=== PATIENT | female | born 1985 | race African-American/Black ===

== ENCOUNTER 2018-08-19 13:02 | Emergency (ER) | payer OTHER | END 2018-08-19 16:13 | disposition home or self-care (01) | LOC: JER 13:02 ==

== ENCOUNTER 2018-09-02 22:05 | Inpatient (IN) | payer OTHER ==
[2018-09-02 22:08] VITALS: BMI 33.3
--- NOTE | 2018-09-02 22:47 | PDOC ---
History of Present Illness - General Chief Complaint: Pain Stated Complaint: ABD PAIN/ 20 WEEKS PREG. Time Seen by Provider: 09/02/18 22:47 History Source: Patient Exam Limitations: No Limitations - History of Present Illness Initial Comments: 09/02/18 23:06 32 year old female with PMH uterine fibroid, 20 weeks A0 presented to ED for RLQ pain since yesterday evening. Pt admitted to nausea, denied vomiting/diarrhea/constipation/dysuria/vaginal bleeding/vaginal discharge. Pt reported her pain is constant, cramp-like, aggravated by breathing and moving, alleviated by rest. Pt reported taking Tylenol every 5 hours today Allergies: NKDA Past History - Past Medical History Allergies/Adverse Reactions: Allergies Allergy/AdvReac Type Severity Reaction Status Date / Time No Known Allergies Allergy Verified 08/19/18 13:15 Home Medications: Ambulatory Orders NK [No Known Home Medication] 08/19/18 COPD: No - Reproductive History (#): 1 Para: 0 - Suicide/Smoking/Psychosocial Hx Smoking History: Never smoked Review of Systems - Review of Systems Able to Perform ROS?: Yes Comments:: 09/02/18 23:05 General: denied fever, chills, generalized weakness. HEENT: denied sore throat, rhinorrhea, ear pain. Heart: denied chest pain, palpitations, syncope, diaphoresis. Respiratory: denied shortness of breath, cough, sputum production, hemoptysis. Abdomen: admitted to abdominal pain, nausea. denied vomiting, diarrhea, constipation, blood in stool. : denied dysuria, increased urinary frequency, hematuria, urinary incontinence , flank pain. Back: denied back pain. Musculoskeletal: denied joint pain, muscle pain, joint swelling. Neurological: denied headache, dizziness, numbness, tingling, weakness. Skin: denied rash, laceration, abrasion. *Physical Exam - Vital Signs Last Vital Signs Temp Pulse Resp BP Pulse Ox 98.5 F 75 19 118/68 100 09/02/18 22:06 09/02/18 22:06 09/02/18 22:06 09/02/18 22:09/02/18 22:06 - Physical Exam Comments: 09/02/18 23:05 Constitutional: Well-nourished, Well-developed, appearing stated age. HEENT: head is normocephalic, atraumatic. EOMI. PERRLA. Neck: supple. Full ROM. Heart: regular rhythm. no murmurs, rubs or gallops. Lungs: clear to auscultation bilaterally. no crackles, rhonchi or wheezing. no stridor. Abdomen: soft, gravid. diffuse tenderness to palpation, worse in RLQ. positive obturator. positive psoas. normal bowel sounds. no rebound, guarding, masses. Extremities: peripheral pulses intact. no lower extremity edema. Neurological: CN 2-12 grossly intact. moves all four extremities. Psych: awake, alert, oriented x3. follows commands. answers questions appropriately. Pelvic: normal external genitalia. copious white thin discharge. no CMT. no adnexal tenderness. ED Treatment Course - LABORATORY CBC & Chemistry Diagram: 09/02/18 22:45 09/02/18 22:45 Medical Decision Making - Medical Decision Making 09/02/18 23:08 32 year old female with no PMH 20 weeks A0 presented to ED for RLQ pain associated with nausea since yesterday evening. Initial Vital Signs Temp Pulse Resp BP Pulse Ox 98.5 F 75 19 118/68 100 09/02/18 22:06 09/02/18 22:06 09/02/18 22:06 09/02/18 22:06 09/02/18 22:06 Afebrile. No tachycardia. No tachypnea. No hypotension. No hypoxia on room air. Labs ordered: CBC, CMP, beta quant, UA/UC, gonorrhea/chlamydia amplification Medications ordered: tylenol IV, azithromycine 1000 mg PO once, ceftriaxone 250 mg IM once Imaging ordered: abdominal US, US US report 08/19/18: EXAM#: TYPE/EXAM: RESULT: [id number] US/ LIMITED US HISTORY PROVIDED: evaluation. Real time examination of the pelvis demonstrates the following: There is a single live intrauterine with measurements corresponding to a gestational age of 17 weeks 5 days. A heart rate of 154 BPM was calculated. There is anterior uterine mass consistent with a leiomyoma. This fibroid measures 6.6 x 5.5 x 5.5 cm. The placenta is fundal in location. An adequate amount of amniotic fluid is identified. The fetus is in a vertex presentation at the present time. A cervical length of 4.9 cm was also measured. IMPRESSION: Single live intrauterine gestation of 17 weeks 5 days gestational age. Reported By: Ant Jain MD 08/19/18 [id number] Examination concerning for possible STI. Will treat. Call back placed for patient to be called with GC/Chlamydia results. 09/02/18 23:23 CBC WBC 12.6 K/mm3 (4.0-10.0) H 09/02/18 22:45 RBC 4.44 M/mm3 (3.60-5.2) 09/02/18 22:45 Hgb 12.2 GM/dL (10.7-15.3) 09/02/18 22:45 Hct 37.1 % (32.4-45.2) 09/02/18 22:45 MCV 83.6 fl (80-96) 09/02/18 22:45 MCH 27.5 pg (25.7-33.7) 09/02/18 22:45 MCHC 32.9 g/dl (32.0-36.0) 09/02/18 22:45 RDW 15.6 % (11.6-15.6) 09/02/18 22:45 Plt Count 231 K/MM3 (134-434) 09/02/18 22:45 MPV 9.0 fl (7.5-11.1) 09/02/18 22:45 Absolute Neuts (auto) 10.0 K/mm3 (1.5-8.0) H 09/02/18 22:45 Neutrophils % 79.4 % (42.8-82.8) 09/02/18 22:45 Lymphocytes % 12.3 % (8-40) D 09/02/18 22:45 Monocytes % 7.5 % (3.8-10.2) 09/02/18 22:45 Eosinophils % 0.4 % (0-4.5) 09/02/18 22:45 Basophils % 0.4 % (0-2.0) 09/02/18 22:45 Nucleated RBC % 0 % (0-0) 09/02/18 22:45 Leukocytosis. No anemia. 09/02/18 23:49 Urine Test Results Urine Color Yellow 09/02/18 23:13 Urine Appearance Clear 09/02/18 23:13 Urine pH 7.5 (5.0-8.0) 09/02/18 23:13 Ur Specific [place] 1.013 (1.010-1.035) 09/02/18 23:13 Urine Protein Negative (NEGATIVE) 09/02/18 23:13 Urine Glucose (UA) Negative (NEGATIVE) 09/02/18 23:13 Urine Ketones Negative (NEGATIVE) 09/02/18 23:13 Urine Blood Negative (NEGATIVE) 09/02/18 23:13 Urine Nitrite Negative (NEGATIVE) 09/02/18 23:13 Urine Bilirubin Negative (NEGATIVE) 09/02/18 23:13 Ur Leukocyte Esterase Negative (NEGATIVE) 09/02/18 23:13 Negative for UTI. 09/03/18 00:04 CMP Sodium 140 mmol/L (136-145) 09/02/18 22:45 Potassium 4.7 mmol/L (3.5-5.1) 09/02/18 22:45 Chloride 106 mmol/L (98-107) 09/02/18 22:45 Carbon Dioxide 26 mmol/L (21-32) 09/02/18 22:45 Anion Gap 7 MMOL/L (8-16) L 09/02/18 22:45 BUN 3.0 mg/dL (7-18) L 09/02/18 22:45 Creatinine 0.6 mg/dL (0.55-1.3) 09/02/18 22:45 Est GFR (CKD-EPI)AfAm 138.80 09/02/18 22:45 Est GFR (CKD-EPI)NonAf 119.76 09/02/18 22:45 Random Glucose 83 mg/dL (74-106) 09/02/18 22:45 Calcium 9.0 mg/dL (8.5-10.1) 09/02/18 22:45 Total Bilirubin 0.2 mg/dL (0.2-1) 09/02/18 22:45 AST 27 U/L (15-37) 09/02/18 22:45 ALT 75 U/L (13-61) H 09/02/18 22:45 Alkaline Phosphatase 87 U/L (45-117) 09/02/18 22:45 Total Protein 6.9 g/dl (6.4-8.2) 09/02/18 22:45 Albumin 3.1 g/dl (3.4-5.0) L 09/02/18 22:45 Lipase 96 U/L (73-393) 09/02/18 22:45 Beta HCG, Quant 7464.7 mIU/ml 09/02/18 22:45 No electrolyte abnormalities. No MAGALYS. Mild ALT elevation. Lipase wnl 09/03/18 00:47 Pelvis US report: FINDINGS: The appendix is not visualized. Please note: Ultrasound of the appendix is highly tape control skin or spar mill operator dependent and the appendix can be obscured by bowel gas. Therefore, nonvisualization of the appendix does not exclude appendicitis. If there is any continuing suspicion of appendicitis, further investigation is recommended. US report: FINDINGS: There is a single live intrauterine gestation with measurements corresponding to 19 weeks and 6 days. Estimated weight is 310.33 g. heart rate is 148 beats per second. motion is observed. Posterior placenta. Cervical length is 4.4 cm. Closed. Multiple fibroids are identified. The ones that are identified and measure 4.7 cm x 4.1 cm x 5.2 cm; 5.8 cm x 4.5 cm x 5.3 cm; 7.7 cm x 6.2 cm x 7.1 cm. The ovaries were not imaged. I spoke with the patient about the results and inability to rule out appendicitis without an MRI. No MRI coverage overnight, pt agrees to wait until the AM to wait for MRI. Will treat with antibiotics in the mean time in case of perforation. Pt reported no pain relief with IV Tylenol. Medications ordered: morphine 4 mg IV once, zofran 4 mg IV once, Cefoxitin 2g IV once 09/03/18 01:[address] Osborne. Pt to be admitted ED obs. 09/03/18 02:10 Pt reported no pain improvement with Morphine. Medications ordered: Dilaudid 1 mg IV once 09/03/18 03:51 Pt reported vomiting. Medications ordered: Zofran 4 mg IV once *DC/Admit/Observation/Transfer Diagnosis at time of Disposition: Uterine fibroid - Discharge Dispostion Condition at time of disposition: Stable Decision to Admit order: Yes - Referrals - Patient Instructions - Post Discharge Activity
[2018-09-02] MEDS ORDERED: ACETAMINOPHEN 1000 MG/100 ML VIAL (NON FORMULARY) IVPB ONE (23:09)
[2018-09-02 23:14] LABS: BASO % 0.4 % (0-2.0); EOS % 0.4 % (0-4.5); HEMATOCRIT 37.1 % (32.4-45.2); HEMOGLOBIN 12.2 GM/dL (10.7-15.3); LYMPH % 12.3 % (8-40); MCH 27.5 pg (25.7-33.7); MCHC 32.9 g/dl (32.0-36.0); MEAN CELL VOLUME 83.6 fl (80-96); MONO % 7.5 % (3.8-10.2); NEUT % 79.4 % (42.8-82.8); PLATELET COUNT 231 K/MM3 (134-434); RBC 4.44 M/mm3 (3.60-5.2); RDW 15.6 % (11.6-15.6); WHITE BLOOD COUNT 12.6 K/mm3 (4.0-10.0)
--- NOTE | 2018-09-02 23:26 | PDOC ---
Documentation entered by Myles De La Cruz SCRIBE, acting as scribe for Cha Regan MD. Cha Regan MD: This documentation has been prepared by the Jono quach Daniel, SCRIBE, under my direction and personally reviewed by me in its entirety. I confirm that the documentation accurately reflects all work, treatment, procedures, and medical decision making performed by me. Attending Attestation - Resident Resident Name: Rima Burroughs - ED Attending Attestation I have performed the following: I have examined & evaluated the patient, The case was reviewed & discussed with the resident, I agree w/resident's findings & plan - HPI HPI: 09/02/18 23:05 The patient is a 32 year old female with no past medical history here today for evaluation of abdominal pain. The patient reports that she is 20 weeks and has been having right lower quadrant pain describing it as a cramp that is worse with breathing and movement. She also notes associated nausea. Patient denies headache, lightheadedness. Denies fever, chills. Denies chest pain, shortness of breath. Denies vomiting, diarrhea, abdominal pain. Denies vaginal bleeding or discharge. Allergies: NKA OB: Clarice Sorensen 09/02/18 23:46 Pain on the Right abdomen x 2 days - Physicial Exam PE: 09/02/18 23:24 GENERAL: Awake, alert, and fully oriented, in no acute distress HEAD: No signs of trauma EYES: PERRLA, EOMI, sclera anicteric, conjunctiva clear ENT: Auricles normal inspection, hearing grossly normal, nares patent, oropharynx clear without exudates. Moist mucosa NECK: Normal ROM, supple, no lymphadenopathy, JVD, or masses LUNGS: Breath sounds equal, clear to auscultation bilaterally. No wheezes, and no crackles HEART: Regular rate and rhythm, normal S1 and S2, no murmurs, rubs or gallops ABDOMEN: +right middle abdominal pain with rebound and light guarding. + suprapubic tenderness. Soft, normoactive bowel sounds. No masses PELVIC: +Vaginal white discharge in vaginal vault. No adnexal tenderness. Os closed. gravid uterus consistent with 20 weeks . EXTREMITIES: Normal range of motion, no edema. No clubbing or cyanosis. No cords, erythema, or tenderness NEUROLOGICAL: Cranial nerves II through XII grossly intact. Normal speech, normal gait SKIN: Warm, Dry, normal turgor, no rashes or lesions noted. - Medical Decision Making 09/02/18 23:45 Pt comes with right abdominal pain that began x 2 days ago. She has sharp stabbing pain with position change and with ambulation. Pain doesn't get worse with eating or drinking. Pt is afebrile. SHe has no dysuria. Pt has no SOB and she has no vaginal d/c or bleeding. 09/02/18 23:59 I will sign out to Dr. Sundeep Pizarro
[2018-09-02 23:34] LABS: PH,URINE 7.5 (5.0-8.0); URINE APPEARANCE CLEAR; URINE BILIRUBIN NEGATIVE (NEGATIVE); URINE COLOR YELLOW; URINE GLUCOSE (UA) NEGATIVE (NEGATIVE); URINE KETONE NEGATIVE (NEGATIVE); URINE LEUK ESTERASE NEGATIVE (NEGATIVE); URINE NITRITE NEGATIVE (NEGATIVE); URINE PROTEIN NEGATIVE (NEGATIVE)
[2018-09-02] MEDS ORDERED: ACETAMINOPHEN INJECTION 100 ML IVPB ONE (23:41)
[2018-09-02 23:46] LABS: PLATELET ESTIMATE ADEQUATE
[2018-09-02 23:59] LABS: ALBUMIN 3.1 g/dl (3.4-5.0); BILIRUBIN,TOTAL 0.2 mg/dL (0.2-1); CREATININE 0.6 mg/dL (0.55-1.3); POTASSIUM 4.7 mmol/L (3.5-5.1); TOT PROT 6.9 g/dl (6.4-8.2)
[2018-09-03] MEDS ORDERED: AZITHROMYCIN 500 MG TABLET PO ONE (00:09)
[2018-09-03] MEDS ORDERED: ONDANSETRON 4 MG/2 ML VIAL IVPUSH ONE ×2 (00:46→03:37)
[2018-09-03] MEDS ORDERED: morphine CARPU-JECT 4 MG/1 ML DISP.SYRIN IVPUSH ONE (00:46)
[2018-09-03] MEDS ORDERED: CEFOXITIN SODIUM 2 GM in DEXTROSE 5%-WATER - 100 ML IVPB ONE (00:57)
[2018-09-03] MEDS ORDERED: morphine SULFATE 4 MG/ML VIAL ONE (01:00)
[2018-09-03] MEDS ORDERED: ONDANSETRON 4 MG/2 ML VIAL ONE (01:00)
--- NOTE | 2018-09-03 01:06 | PDOC ---
*Physical Exam - Vital Signs Last Vital Signs Temp Pulse Resp BP Pulse Ox 98.5 F 75 19 118/68 100 09/02/18 22:06 09/02/18 22:06 09/02/18 22:06 09/02/18 22:06 09/02/18 22:06 ED Treatment Course - LABORATORY CBC & Chemistry Diagram: 09/02/18 22:45 09/02/18 22:45 - ADDITIONAL ORDERS Additional order review: Laboratory Results 09/02/18 09/02/18 23:13 22:45 Sodium 140 Potassium 4.7 Chloride 106 Carbon Dioxide 26 Anion Gap 7 L BUN 3.0 L Creatinine 0.6 Est GFR (CKD-EPI)AfAm 138.80 Est GFR (CKD-EPI)NonAf 119.76 Random Glucose 83 Calcium 9.0 Total Bilirubin 0.2 AST 27 ALT 75 H Alkaline Phosphatase 87 Total Protein 6.9 Albumin 3.1 L Lipase 96 Beta HCG, Quant 7464.7 Urine Color Yellow Urine Appearance Clear Urine pH 7.5 Ur Specific [place] 1.013 Urine Protein Negative Urine Glucose (UA) Negative Urine Ketones Negative Urine Blood Negative Urine Nitrite Negative Urine Bilirubin Negative Urine Urobilinogen 1.0 Ur Leukocyte Esterase Negative 09/02/18 22:45 RBC 4.44 MCV 83.6 MCHC 32.9 RDW 15.6 MPV 9.0 Neutrophils % 79.4 Lymphocytes % 12.3 D Monocytes % 7.5 Eosinophils % 0.4 Basophils % 0.4 - Medications Given in the ED: ED Medications Discontinued Medications Generic Name Dose Route Start Last Admin Trade Name Freq PRN Reason Stop Dose Admin Acetaminophen 1,000 mg 09/02/18 23:09 09/02/18 23:56 Ofirmev Injection - IVPB 09/02/18 23:10 1,000 mg ONCE ONE Administration Medical Decision Making - Medical Decision Making 09/03/18 01:05 Patient received as sign out from Dr. Regan. I brief, patient is a 32F with 2-3 days of persistent abdominal pain that is now localizing to the RLQ. Follow up results of ultrasound If inconclusive will proceed with MRI *DC/Admit/Observation/Transfer Diagnosis at time of Disposition: Uterine fibroid - Referrals - Patient Instructions - Post Discharge Activity Forms/Work/School Notes: Back to Work
[2018-09-03] MEDS ORDERED: LIDOCAINE HCL 1%, 10 MG/ML (20ML VIAL) ONE (01:13)
[2018-09-03] MEDS ORDERED: HYDROmorphone HCL CARPU-JECT 2 MG/1 ML DISP.SYRIN IVPUSH ONE (02:09)
[2018-09-03] MEDS ORDERED: HYDROmorphone HCl 2 MG/ML VIAL ONE (02:33)
--- NOTE | 2018-09-03 03:23 | PN ---
Teaching Attending Note Name of Resident: Juan Pichardo ATTENDING PHYSICIAN STATEMENT I saw and evaluated the patient. I reviewed the resident's note and discussed the case with the resident. I agree with the resident's findings and plan as documented. SUBJECTIVE: Patient is ED Obs. Seen and examined; please refer to resident note for further historical details. Briefly, this is a 32 y/o female presenting to the medicine as ED obs patient for abdominal pain. She is afebrile and hemodynamically stable. Was told she will need MRI abdomen in the AM to r/o appendicitis. Prelim imaging done in the ER was not able to visualize her appendix (BMI>30); obstetric US shows a 19 week 6 day with multiple fibroids. 3 episodes of diarrhea (nonbloody) on monday. 10 sys ROS done and negative aside from HPI PMH (HSV2), PSH, FH, SH reviewed Home Medications Medication Instructions Recorded NK [No Known Home Medication] 08/19/18 OBJECTIVE: VS, labs, imaging reviewed NAD, AAO, resting comfortably in bed NC AT EOMI PERRLA RRR s1/2 no mgr Lungs CTAB, w/ sym exp Mild RLQ tenderness, ND +BS CN2-12 wnl, no fnd Normal mood, appropriate behavior EKG reviewed US discussed in HPI; final read pending ASSESSMENT AND PLAN: Patient presents with abdominal pain; she is afebrile and hemodynamically stable with a small white count and we will r/o appendicitis. Spoke with Dr. Ramos; will place on IVF, NPO, obtain coags and type and screen. Got abx in ER; will hold off on more. Viable noted and her OBGYN has been consulted for guidance. 1) R/O Appy -IVF, NPO, got abx in ER-no further dose given. Followup Dr. Ramos's recommendations. Hemodyamically stable and afebrile. Trend CBC and monitorabdominlal exam. Phenergan for antiemetic if needed. Offermev for pain ; consider PRN opiate agonist if not controlled. 2) Intrauterine Preg -16 weeks 6 days -Consult her OBGYN; appreciate expert guidance -Extreme caution with medications Full Code
[2018-09-03] MEDS ORDERED: ACETAMINOPHEN 1000 MG/100 ML VIAL (NON FORMULARY) IVPB PRN (05:11)
[2018-09-03] MEDS ORDERED: HYDROmorphone HCl 2 MG/ML VIAL IVPUSH PRN (05:12)
--- NOTE | 2018-09-03 05:14 | HP ---
CHIEF COMPLAINT: Abdominal Pain PCP: HISTORY OF PRESENT ILLNESS: Pt. is a 32 y.o. F w/ PMHx. of Herpes 2 ( denies ever having flare) and uterine fibroids presents with abdominal pain for the last 2 days. Pt. states that she tried taking Tylenol every 5 hours without success. Pt. endorses nausea without vomiting, and cramping pain with deep respiration and movement. Pt. endorses diarrhea on Monday x 3 episodes that were "loose, not all watery." Pt. states that over the last 6 months Pt. states that her fibroid has grown from ~2cm to ~6cm. Pt. denies constipation, fever, chills, bleeding from any source, dysuria or vaginal discharge. ER course was notable for: (1)GC/ Chlamydia, Tylenol, Pelvic + Obs US., (2)Ceftoxitin, Ceftriaxone, Dilaudid, Morphine, Zofran, (3) Recent Travel: No PAST MEDICAL HISTORY: Uterine Fibroids and HSV2 PAST SURGICAL HISTORY: None Social History: Smoking: Denies Alcohol: Drinks 1 drink per month BEFORE Drugs: Denies Family History: HTN on mother side Allergies No Known Allergies Allergy (Verified 08/19/18 13:15) HOME MEDICATIONS: Home Medications Medication Instructions Recorded NK [No Known Home Medication] 08/19/18 REVIEW OF SYSTEMS As above PHYSICAL EXAMINATION Vital Signs - 24 hr 09/02/18 09/03/18 22:06 04:35 Temperature 98.5 F Pulse Rate 75 Pulse Rate [ 82 Right] Respiratory 19 18 Rate Blood Pressure 118/68 Blood Pressure 116/68 [Right] O2 Sat by Pulse 100 99 Oximetry (%) GENERAL: Awake, alert, and fully oriented, in moderate distress. HEAD: Normal with no signs of trauma. EYES: Pupils equal, round and reactive to light, extraocular movements intact, sclera anicteric, conjunctiva clear. EARS, NOSE, THROAT: Ears normal, nares patent, oropharynx clear without exudates. Moist mucous membranes. NECK: Normal range of motion, supple without lymphadenopathy, JVD, or masses. LUNGS: Breath sounds equal, clear to auscultation bilaterally. No wheezes, and no crackles. No accessory muscle use. HEART: Regular rate and rhythm, normal S1 and S2 without murmur ABDOMEN: Soft, diffuse tenderness to palpation most notable and prominent in RLQ , palpation in diffuse locations localizes to RLQ; not distended, normoactive bowel sounds, no guarding, no rebound, no masses. MUSCULOSKELETAL: Normal range of motion at all joints. No bony deformities or tenderness. No CVA tenderness. UPPER EXTREMITIES: 2+ radial pulses, warm, well-perfused. No cyanosis. No clubbing. No peripheral edema. LOWER EXTREMITIES: Warm, well-perfused. No calf tenderness. No peripheral edema. NEUROLOGICAL: Normal speech. Gait not assessed PSYCHIATRIC: Cooperative. Good eye contact. Appropriate mood and affect. SKIN: Warm, dry, normal turgor, no rashes or lesions noted, normal capillary refill. Laboratory Results - last 24 hr 09/02/18 09/02/18 09/02/18 22:45 22:45 23:13 WBC 12.6 H RBC 4.44 Hgb 12.2 Hct 37.1 MCV 83.6 MCH 27.5 MCHC 32.9 RDW 15.6 Plt Count 231 MPV 9.0 Absolute Neuts (auto) 10.0 H Total Counted 100 Neutrophils % 79.4 Neutrophils % (Manual) 73.0 Band Neutrophils % 6.0 Lymphocytes % 12.3 D Lymphocytes % (Manual) 7.0 L Monocytes % 7.5 Monocytes % (Manual) 1 L Eosinophils % 0.4 Basophils % 0.4 Nucleated RBC % 0 Platelet Estimate Adequate Platelet Comment No clotting detected Sodium 140 Potassium 4.7 Chloride 106 Carbon Dioxide 26 Anion Gap 7 L BUN 3.0 L Creatinine 0.6 Est GFR (CKD-EPI)AfAm 138.80 Est GFR (CKD-EPI)NonAf 119.76 Random Glucose 83 Calcium 9.0 Total Bilirubin 0.2 AST 27 ALT 75 H Alkaline Phosphatase 87 Total Protein 6.9 Albumin 3.1 L Lipase 96 Beta HCG, Quant 7464.7 Urine Color Yellow Urine Appearance Clear Urine pH 7.5 Ur Specific [place] 1.013 Urine Protein Negative Urine Glucose (UA) Negative Urine Ketones Negative Urine Blood Negative Urine Nitrite Negative Urine Bilirubin Negative Urine Urobilinogen 1.0 Ur Leukocyte Esterase Negative ASSESSMENT/PLAN: Pt. is a 32 y.o. F w/ PMHx. of Herpes 2 (denies ever having flare) and uterine fibroids presents with abdominal pain for the last 2 days. Pt. states that she tried taking Tylenol every 5 hours without success. #Abdominal Pain 2/2 suspected Appendicitis Pelvic US: Appendix no visualized Obs. US: Fetus 19 weeks 6 days, HR: 148, motion observed, posterior placenta, cervix closed, 4.4cm UA- cannot r/o other etiologies, low-suspicion for biliary colic however f/u Abd. US Hold Abx. at this time as Pt. is afebrile. Pt. received Cefoxitin and ceftriaxone in ED IV Tylenol and Dilaudid for Pain control Consult to Surgery (Dr. Ramos) appreciated c/w Promethazine for nausea #Intrauterine Obs. US appreciated, as above 19 weeks 6 days Consider DAMAGE ADJUSTER consult ( Dr. Sorensen) Caution with lab tests and medications #FEN LR @ 83ml/hr monitor electrolytes and replete as needed NPO #DVT Ppx. TEDs Visit type - Emergency Visit Emergency Visit: Yes ED Registration Date: 09/03/18 Care time: The patient presented to the Emergency Department on the above date and was hospitalized for further evaluation of their emergent condition. - New Patient This patient is new to me today: Yes Date on this admission: 09/03/18 - Critical Care Critical Care patient: No
[2018-09-03] MEDS ORDERED: LACTATED RINGERS SOLUTION 1,000 ML IV SCH (05:15)
[2018-09-03] MEDS: LACTATED RINGERS SOLUTION 1,000 ML IV SCH ×2 (06:10→17:27)
[2018-09-03] MEDS ORDERED: PROMETHAZINE HCL 25 MG/1 ML VIAL IVPUSH PRN (06:25)
[2018-09-03] MEDS ORDERED: PROMETHAZINE HCL 25 MG/1 ML VIAL IVPB PRN (06:38)
[2018-09-03] MEDS ORDERED: ACETAMINOPHEN 1000 MG/100 ML VIAL (NON FORMULARY) IVPB ONE (08:20)
[2018-09-03] MEDS ORDERED: ACETAMINOPHEN INJECTION 100 ML IVPB ONE (08:26)
--- NOTE | 2018-09-03 08:26 | PN ---
Physical Exam: SUBJECTIVE: Patient seen and examined, crying, still reports right lower quadrant pain. reports 2 days of right lower quadrant pain, with nausea and watery non bloody diarrhea. OBJECTIVE: Vital Signs Period Temp Pulse Resp BP Sys/Denise Pulse Ox Last 24 Hr 97.5 F-98.5 F 72-82 18-20 116-131/66-68 99-100 Intake & Output 08/31/18 09/01/18 09/02/18 09/03/18 23:59 23:59 23:59 23:59 Weight 200 lb GENERAL: sitting in wheelchair crying in pain Chest: CTAB, no rales or wheezing, Neck: soft, supple, no JVD Chest: S1s2 regular Abdomen:distended, patient jumps on attempting to palpate RLQ, refuses further exam, limited, on guarding or rigidity appreciated Extremities: no edema Psych: tearful, anxious Laboratory Results - last 24 hr 09/02/18 09/02/18 09/02/18 22:45 22:45 23:13 WBC 12.6 H RBC 4.44 Hgb 12.2 Hct 37.1 MCV 83.6 MCH 27.5 MCHC 32.9 RDW 15.6 Plt Count 231 MPV 9.0 Absolute Neuts (auto) 10.0 H Total Counted 100 Neutrophils % 79.4 Neutrophils % (Manual) 73.0 Band Neutrophils % 6.0 Lymphocytes % 12.3 D Lymphocytes % (Manual) 7.0 L Monocytes % 7.5 Monocytes % (Manual) 1 L Eosinophils % 0.4 Basophils % 0.4 Nucleated RBC % 0 Platelet Estimate Adequate Platelet Comment No clotting detected Sodium 140 Potassium 4.7 Chloride 106 Carbon Dioxide 26 Anion Gap 7 L BUN 3.0 L Creatinine 0.6 Est GFR (CKD-EPI)AfAm 138.80 Est GFR (CKD-EPI)NonAf 119.76 Random Glucose 83 Calcium 9.0 Total Bilirubin 0.2 AST 27 ALT 75 H Alkaline Phosphatase 87 Total Protein 6.9 Albumin 3.1 L Lipase 96 Beta HCG, Quant 7464.7 Urine Color Yellow Urine Appearance Clear Urine pH 7.5 Ur Specific [place] 1.013 Urine Protein Negative Urine Glucose (UA) Negative Urine Ketones Negative Urine Blood Negative Urine Nitrite Negative Urine Bilirubin Negative Urine Urobilinogen 1.0 Ur Leukocyte Esterase Negative Active Medications Generic Name Dose Route Start Last Admin Trade Name Freq PRN Reason Stop Dose Admin Acetaminophen 1,000 mg 09/03/18 05:11 Ofirmev Injection - IVPB Q6H PRN PAIN LEVEL 6-10 Lactated Ringer's 1,000 mls @ 100 mls/hr 09/03/18 05:15 09/03/18 06:10 Lactated Ringers Solution IV 100 mls/hr ASDIR KELLE Administration Promethazine HCl 12.5 mg 09/03/18 06:38 Phenergan Injection - IVPB Q6H PRN NAUSEA Home Medications Medication Instructions Recorded NK [No Known Home Medication] 08/19/18 Ob and pelvic ultrasound perlim results reviewed ASSESSMENT/PLAN: 32 yof 20 weeks , with PMHx of fibroids, admitted with RLQ Pain/nausea/ diarrhea -RLQ pain/nausea/Diarrhea, r/o appendicitis/Fibroid related -20 weeks -Fibroids Plan; patient was admitted as ED obs. s/p antibiotics in the ED (?Ceftriaxone/Azithromycin/Cefoxitin) in the ED. Awaiting MRI. Discussed with MRI and ED RN. Continues to be symptomatic, supportive treatment. Await surgery input. Ongoing persistent symptoms, patient needs admission for the same and appropriate work up and Obstetric monitoring. Discussed with Dr. Ling, agrees with monitoring on the obstetric floor, Dr. Sorensen to see patient today. Plan discussed with Dr. Walter/Dr. Sanchez in the ED. Will continue to follow the patient. Visit type - Emergency Visit Emergency Visit: Yes ED Registration Date: 09/03/18 Care time: The patient presented to the Emergency Department on the above date and was hospitalized for further evaluation of their emergent condition. - New Patient This patient is new to me today: Yes Date on this admission: 09/03/18 - Critical Care Critical Care patient: No - Discharge Referral Referred to [facility] No
[2018-09-03 08:47] LABS: HEMATOCRIT 34.8 % (32.4-45.2); HEMOGLOBIN 11.4 GM/dL (10.7-15.3); MCH 27.3 pg (25.7-33.7); MCHC 32.8 g/dl (32.0-36.0); MEAN CELL VOLUME 83.5 fl (80-96); MEAN PLT VOLUME 8.7 fl (7.5-11.1); PLATELET COUNT 237 K/MM3 (134-434); RBC 4.17 M/mm3 (3.60-5.2); RDW 15.5 % (11.6-15.6); WHITE BLOOD COUNT 11.9 K/mm3 (4.0-10.0)
[2018-09-03 09:13] LABS: BLOOD UREA NITROGEN 4.4 mg/dL (7-18); CALCIUM 8.7 mg/dL (8.5-10.1); CREATININE 0.5 mg/dL (0.55-1.3); PHOSPHOROUS 3.6 mg/dL (2.5-4.9)
[2018-09-03 09:16] LABS: BILIRUBIN,DIRECT 0.1 mg/dL (0.0-0.2); BILIRUBIN,TOTAL 0.2 mg/dL (0.2-1); TOT PROT 6.9 g/dl (6.4-8.2)
--- NOTE | 2018-09-03 09:30 | EKG ---
Test Reason : Blood Pressure : / mmHG Vent. Rate : 057 BPM Atrial Rate : 057 BPM P-R Int : 186 ms QRS Dur : 088 ms QT Int : 466 ms P-R-T Axes : 020 007 -01 degrees QTc Int : 453 ms SINUS BRADYCARDIA MODERATE VOLTAGE CRITERIA FOR LVH, MAY BE NORMAL VARIANT BORDERLINE ECG WHEN COMPARED WITH ECG OF 01-DEC-2008 17:01, NO SIGNIFICANT CHANGE WAS FOUND Confirmed by STEW WATSON, PERCY ([id number]) on 09/03/2018 9:29:54 AM Referred By: Confirmed By:PERCY MATHIAS MD
--- NOTE | 2018-09-03 09:37 | PN ---
Progress Note (short form) - Note Progress Note: Came to see pt at 0855, pt not in ER, is in imaging. Will return to see pt.
--- NOTE | 2018-09-03 11:21 | CON.OBG ---
Consult Consult Specialty:: Obstetrics/Gynecology Reason for Consultation:: 19 weeks and left abdominal pain - History of Present Illness Chief Complaint: Left abdominal pain with fibroids at 19 weeks - History Source History Provided By: Patient Limitations to Obtaining History: No Limitations - Past Medical History Reproductive: Yes: Fibroids ...LMP: 04/20/18 ...: Yes - Past Surgical History Past Surgical History: Yes: None - Alcohol/Substance Use Hx Alcohol Use: No History of Substance Use: reports: None - Smoking History Smoking history: Never smoked - Social History History of Recent Travel: No Home Medications - Allergies Allergies/Adverse Reactions: Allergies Allergy/AdvReac Type Severity Reaction Status Date / Time No Known Allergies Allergy Verified 08/19/18 13:15 - Home Medications Home Medications: Ambulatory Orders NK [No Known Home Medication] 08/19/18 Physical Exam-[employer] Vital Signs: Vital Signs Temperature 97.5 F L 09/03/18 07:35 Pulse Rate 72 09/03/18 07:35 Respiratory Rate 20 09/03/18 07:35 Blood Pressure 131/66 09/03/18 07:35 O2 Sat by Pulse Oximetry (%) 99 09/03/18 07:35 Constitutional: Yes: Well Nourished, No Distress Gastrointestinal: Yes: Abdomen, Obese, Tenderness ...Rectal Exam: Yes: WNL Pelvis: Yes: WNL ....Post : Yes: Uterus firm, Uterus non-tender Breast(s): Yes: WNL Musculoskeletal: Yes: WNL Extremities: Yes: WNL Edema: No Neurological: Yes: WNL, Alert, Oriented Labs: CBC, BMP 09/03/18 08:20 09/03/18 08:20 Problem List - Problems (1) Uterine fibroid Code(s): D25.9 - LEIOMYOMA OF UTERUS, UNSPECIFIED (2) Abdominal pain during intrauterine Code(s): O26.899 - OTH RELATED CONDITIONS, UNSPECIFIED TRIMESTER; R10.9 - UNSPECIFIED ABDOMINAL PAIN Assessment/Plan FIbroids - possible degeneration pain IUP at 19 weeks left lower pain where 7 cm myoma is located Appendicitis ruled out - spoke with Dr Ramos Plan admit for observation and analgesia Indomethacin 50mg TID x 3 days
[2018-09-03] MEDS ORDERED: INDOMETHACIN 50 MG CAPSULE PO STA (11:30)
[2018-09-03 11:41] LABS: INR 1.05 (0.83-1.09); PROTHROMBIN TIME (PATIENT) 12.4 SEC (9.7-13.0)
--- NOTE | 2018-09-03 12:07 | CONSULT ---
Consult Consult Specialty:: General Surgery Referred by:: Kelsi Osborne Reason for Consultation:: 20 wks , RLQ pain, r/o appendicitis - History of Present Illness Chief Complaint: RLQ/R mid abdominal pain, nausea History of Present Illness: 32yo F with h/o uterine fibroids and HSV (no outbreak) and no surgeries presented to ER last night with severe RLQ pain beginning on Monday, associated with nausea but no vomiting, diarrhea/loose brown stool just yesterday, no F/C, no loss of appetite. She initially thought it was cramps, and took 650mg tylenol every 4-5 hrs yesterday, but the pain got worse to the point she could barely walk, and she has never had pain quite like this before. Largest fibroid last measured was 5.5cm, and has grown with the ; she had OB appt pending this week with Dr. Sorensen. In ER, she had elevated wbc, was afebrile, and US showed 19w6d last night, large fibroids (largest 7.7cm), nonvisualized appendix, and contracted gb with no stones. She had MRI this morning to r/o appendicitis. Surgery was asked to assess. She is seen and examined in ER holding. She is still in pain. She reports neither tylenol nor morphine helped the pain, but the dilaudid did a little. She has had IV fluids and some antibiotics in the ER. She had markus crackers a few hours ago, otherwise last meal was yesterday. She is hungry. is at bedside. She gave the above history. Takes only vitamins at home. - History Source History Provided By: Patient, Medical Record Limitations to Obtaining History: No Limitations - Past Medical History Reproductive: Yes: Fibroids ...LMP: 04/20/18 ...: Yes (20 weeks) ...: 1 ...Para: 0 Infectious Disease: Yes: Herpes Zoster - Past Surgical History Past Surgical History: Yes: None - Alcohol/Substance Use Hx Alcohol Use: No (social prior to ) History of Substance Use: reports: None - Smoking History Smoking history: Never smoked Have you smoked in the past 12 months: No - Social History Usual Living Arrangement: With Spouse ADL: Independent History of Recent Travel: No Home Medications - Allergies Allergies/Adverse Reactions: Allergies Allergy/AdvReac Type Severity Reaction Status Date / Time No Known Allergies Allergy Verified 08/19/18 13:15 - Home Medications Home Medications: Ambulatory Orders NK [No Known Home Medication] 08/19/18 Home Medications (free text): pt does take vitamins Family Disease History - Family Disease History Family Disease History: Other: Mother (hypertension) Review of Systems - Review of Systems Constitutional: denies: Chills, Fever, Loss of Appetite Eyes: denies: Blurred Vision, Recent Change in Vision HENT: denies: Difficult Swallowing, Throat Pain Neck: denies: Swollen Glands, Tenderness Cardiovascular: denies: Chest Pain, Palpitations Respiratory: denies: Cough, SOB Gastrointestinal: reports: Abdominal Pain (with hpi), Diarrhea (yesterday, with hpi), Nausea (with hpi). denies: Constipation, Vomiting Genitourinary: denies: Burning, Dysuria Musculoskeletal: denies: Back Pain, Joint Pain, Muscle Pain Integumentary: denies: Change in Color, Rash Neurological: denies: Dizziness, Headache, Unsteady Gait Psychiatric: denies: Anxiety, Depression Physical Exam Vital Signs: Vital Signs Temperature 97.5 F L 09/03/18 07:35 Pulse Rate 72 09/03/18 07:35 Respiratory Rate 20 09/03/18 07:35 Blood Pressure 131/66 09/03/18 07:35 O2 Sat by Pulse Oximetry (%) 99 09/03/18 07:35 Constitutional: Yes: Well Nourished, Calm, Moderate Distress (in pain - hurts when moving, changing position, with mild palpation of gravid abdomen) Eyes: Yes: Conjunctiva Clear, EOM Intact HENT: Yes: Atraumatic, Normocephalic Neck: Yes: Supple, Trachea Midline Cardiovascular: Yes: Regular Rate and Rhythm, Tachycardia (slight) Respiratory: Yes: Regular, CTA Bilaterally, Other (can't take full deep breath secondary to pain) Gastrointestinal: Yes: Normal Bowel Sounds, Soft, Distention (gravid - fundus palpable ~3 fingers above umbilicus?), Palpable Mass (right mid abdomen - ? fibroid), Tenderness (exquisitely tender right mid-abdomen, less below uterus/ RLQ, also RUQ/midline over uterus, minimal on left, referred pain from LLQ to right side when palpated). No: Tenderness, Rebound ...Rectal Exam: Yes: Deferred Renal/: Yes: . No: Vaginal Bleeding (per ER exam) Musculoskeletal: No: Joint Stiffness, Joint Swelling Extremities: No: Cool, Cyanosis Edema: Yes Edema: LLE: Trace, RLE: Trace Peripheral Pulses WNL: Yes Integumentary: No: Jaundice, Rash Neurological: Yes: Alert, Oriented Psychiatric: Yes: Alert, Oriented Labs: CBC, BMP 09/03/18 08:20 09/03/18 08:20 CMP Sodium 136 mmol/L (136-145) 09/03/18 08:20 Potassium 4.0 mmol/L (3.5-5.1) 09/03/18 08:20 Chloride 103 mmol/L (98-107) 09/03/18 08:20 Carbon Dioxide 27 mmol/L (21-32) 09/03/18 08:20 Anion Gap 7 MMOL/L (8-16) L 09/03/18 08:20 BUN 4.4 mg/dL (7-18) L 09/03/18 08:20 Creatinine 0.5 mg/dL (0.55-1.3) L 09/03/18 08:20 Est GFR (CKD-EPI)AfAm 147.38 09/03/18 08:20 Est GFR (CKD-EPI)NonAf 127.16 09/03/18 08:20 Random Glucose 97 mg/dL (74-106) 09/03/18 08:20 Calcium 8.7 mg/dL (8.5-10.1) 09/03/18 08:20 Phosphorus 3.6 mg/dL (2.5-4.9) 09/03/18 08:20 Magnesium 2.0 mg/dL (1.8-2.4) 09/03/18 08:20 Total Bilirubin 0.2 mg/dL (0.2-1) 09/03/18 08:20 Direct Bilirubin 0.1 mg/dL (0.0-0.2) 09/03/18 08:20 AST 24 U/L (15-37) 09/03/18 08:20 ALT 71 U/L (13-61) H 09/03/18 08:20 Alkaline Phosphatase 87 U/L (45-117) 09/03/18 08:20 Total Protein 6.9 g/dl (6.4-8.2) 09/03/18 08:20 Albumin 3.0 g/dl (3.4-5.0) L 09/03/18 08:20 Lipase 96 U/L (73-393) 09/02/18 22:45 Beta HCG, Quant 7464.7 mIU/ml 09/02/18 22:45 INR, PTT INR 1.05 (0.83-1.09) 09/03/18 11:11 Urine Test Results Urine Color Yellow 09/02/18 23:13 Urine Appearance Clear 09/02/18 23:13 Urine pH 7.5 (5.0-8.0) 09/02/18 23:13 Ur Specific [place] 1.013 (1.010-1.035) 09/02/18 23:13 Urine Protein Negative (NEGATIVE) 09/02/18 23:13 Urine Glucose (UA) Negative (NEGATIVE) 09/02/18 23:13 Urine Ketones Negative (NEGATIVE) 09/02/18 23:13 Urine Blood Negative (NEGATIVE) 09/02/18 23:13 Urine Nitrite Negative (NEGATIVE) 09/02/18 23:13 Urine Bilirubin Negative (NEGATIVE) 09/02/18 23:13 Ur Leukocyte Esterase Negative (NEGATIVE) 09/02/18 23:13 wbc down from 12 Imaging - Results Ultrasound: Report Reviewed (~20 wks IUP, several fibroids - largest on right ~7.7cm greatest dimension (per pt, last measured was 5.5cm), appendix not seen, contracted gallbladder with no clear stones) MRI: Image Reviewed (images reviewed with Dr. Khan/radiology - appendix does not appear inflamed, large fibroid adjacent - appears pedunculated, ?could be torsed/infarcted/degenerating?, little fluid in RLQ/pelvis; gravid uterus, no bowel obstruction or free air) Problem List - Problems (1) Abdominal pain during in second trimester Code(s): O26.892 - OTH RELATED CONDITIONS, SECOND TRIMESTER; R10.9 - UNSPECIFIED ABDOMINAL PAIN (2) RLQ abdominal pain Code(s): R10.31 - RIGHT LOWER QUADRANT PAIN (3) Pedunculated leiomyoma of uterus Code(s): D25.9 - LEIOMYOMA OF UTERUS, UNSPECIFIED (4) Nausea alone Code(s): R11.0 - NAUSEA (5) 20 weeks gestation of Code(s): Z3A.20 - 20 WEEKS GESTATION OF Assessment/Plan right-sided pain in 20wk patient, tender over fibroid and uterus per MRI interpretation, not appendicitis - appendix appears normal pain is likely secondary to large right-sided, pedunculated uterine fibroid possibly torsed/infarcted/infarcting? admitted to [facility] discussed with Dr. Driver and Dr. Sorensen pain control prn no need for antibiotics no general surgical issues will sign off Thank you for the opportunity to participate in the care of this patient.
[2018-09-03] MEDS ORDERED: MEPERIDINE HCL CARPU-JECT 50 MG/1 ML DISP.SYRIN IM PRN (13:49)
[2018-09-03] MEDS ORDERED: INDOMETHACIN 50 MG CAPSULE PO SCH (14:00)
[2018-09-03] MEDS: MEPERIDINE HCL 50 MG/ML VIAL IM PRN ×2 (15:26→21:34)
[2018-09-03] MEDS: INDOMETHACIN 50 MG CAPSULE PO SCH (21:37)
[2018-09-04] MEDS: LACTATED RINGERS SOLUTION 1,000 ML IV SCH (02:00)
[2018-09-04] MEDS: INDOMETHACIN 50 MG CAPSULE PO SCH ×3 (05:58→22:03)
[2018-09-04] MEDS: MEPERIDINE HCL 50 MG/ML VIAL IM PRN ×3 (11:04→23:35)
[2018-09-05] MEDS: INDOMETHACIN 50 MG CAPSULE PO SCH ×3 (06:01→21:29)
--- NOTE | 2018-09-05 07:16 | PN ---
Progress Note (SOAP) - Current Medications Current Medications: Active Medications Acetaminophen (Ofirmev Injection -) 1,000 mg IVPB Q6H PRN PRN Reason: PAIN LEVEL 1-3 Last Admin: 09/04/18 12:51 Dose: 1,000 mg Lactated Ringer's (Lactated Ringers Solution) 1,000 mls @ 100 mls/hr IV ASDIR [facility] Last Admin: 09/04/18 02:00 Dose: 100 mls/hr Indomethacin (Indocin -) 50 mg PO TID [facility] Last Admin: 09/05/18 06:01 Dose: 50 mg Meperidine HCl (Demerol Vial) 50 mg IM Q6H PRN PRN Reason: PAIN 7-10 Last Admin: 09/04/18 23:35 Dose: 50 mg Promethazine HCl (Phenergan Injection -) 12.5 mg IVPB Q6H PRN PRN Reason: NAUSEA - Objective Vital Signs: Vital Signs Temperature 98.3 F 09/05/18 01:59 Pulse Rate 70 09/05/18 01:59 Respiratory Rate 20 09/05/18 01:59 Blood Pressure 111/61 09/05/18 01:59 O2 Sat by Pulse Oximetry (%) 99 09/03/18 07:35 Constitutional: Yes: Well Nourished, No Distress Gastrointestinal: Yes: WNL ....Post : Yes: Uterus tender Musculoskeletal: Yes: WNL Extremities: Yes: WNL Neurological: Yes: WNL, Alert, Oriented Labs Lab Results: CBC, BMP 09/03/18 08:20 09/03/18 08:20 Problem List - Problems (1) Uterine fibroid Code(s): D25.9 - LEIOMYOMA OF UTERUS, UNSPECIFIED Qualifiers: Uterine leiomyoma location: subserous Qualified Code(s): D25.2 - Subserosal leiomyoma of uterus (2) Abdominal pain during intrauterine Code(s): O26.899 - OTH RELATED CONDITIONS, UNSPECIFIED TRIMESTER; R10.9 - UNSPECIFIED ABDOMINAL PAIN Assessment/Plan FIbroids - degeneration pain IUP at 19 weeks left lower pain where 7 cm myoma is located Appendicitis ruled out - spoke with Dr Ramos Plan Continue present mangement Indomethacin 50mg TID x 3 days
--- NOTE | 2018-09-05 07:20 | PN ---
Progress Note (SOAP) - Subjective Chief Complaint: Pt with pain somewhat improved - Current Medications Current Medications: Active Medications Acetaminophen (Ofirmev Injection -) 1,000 mg IVPB Q6H PRN PRN Reason: PAIN LEVEL 1-3 Last Admin: 09/04/18 12:51 Dose: 1,000 mg Lactated Ringer's (Lactated Ringers Solution) 1,000 mls @ 100 mls/hr IV ASDIR [facility] Last Admin: 09/04/18 02:00 Dose: 100 mls/hr Indomethacin (Indocin -) 50 mg PO TID [facility] Last Admin: 09/05/18 06:01 Dose: 50 mg Meperidine HCl (Demerol Vial) 50 mg IM Q6H PRN PRN Reason: PAIN 7-10 Last Admin: 09/04/18 23:35 Dose: 50 mg Promethazine HCl (Phenergan Injection -) 12.5 mg IVPB Q6H PRN PRN Reason: NAUSEA - Objective Vital Signs: Vital Signs Temperature 98.3 F 09/05/18 01:59 Pulse Rate 70 09/05/18 01:59 Respiratory Rate 20 09/05/18 01:59 Blood Pressure 111/61 09/05/18 01:59 O2 Sat by Pulse Oximetry (%) 99 09/03/18 07:35 Constitutional: Yes: Well Nourished, Anxious Gastrointestinal: Yes: Tenderness ....Post : Yes: Uterus tender Edema: No Neurological: Yes: WNL, Alert, Oriented Labs Lab Results: CBC, BMP 09/03/18 08:20 09/03/18 08:20 Problem List - Problems (1) Uterine fibroid Code(s): D25.9 - LEIOMYOMA OF UTERUS, UNSPECIFIED Qualifiers: Uterine leiomyoma location: subserous Qualified Code(s): D25.2 - Subserosal leiomyoma of uterus (2) Abdominal pain during intrauterine Code(s): O26.899 - OTH RELATED CONDITIONS, UNSPECIFIED TRIMESTER; R10.9 - UNSPECIFIED ABDOMINAL PAIN Assessment/Plan FIbroids - degeneration pain IUP at 19 weeks left lower pain where 7 cm myoma is located Appendicitis ruled out - spoke with Dr Ramos Plan Continue present mangement Indomethacin 50mg TID x 3 days
[2018-09-05] MEDS: LACTATED RINGERS SOLUTION 1,000 ML IV SCH ×2 (10:30→23:34)
[2018-09-06] MEDS: LACTATED RINGERS SOLUTION 1,000 ML IV SCH (06:01)
--- NOTE | 2018-09-06 06:01 | PN ---
Progress Note, Physician Chief Complaint: Pt seen/evaluated. States pain is improving with medications. Hasn't had any IV meds (demerol/ofirmev) since 09/04. Still with pressure and discomfort but pain improving with indomethacin. - Current Medication List Current Medications: Active Medications Acetaminophen (Ofirmev Injection -) 1,000 mg IVPB Q6H PRN PRN Reason: PAIN LEVEL 1-3 Last Admin: 09/04/18 12:51 Dose: 1,000 mg Lactated Ringer's (Lactated Ringers Solution) 1,000 mls @ 100 mls/hr IV ASDIR [facility] Last Admin: 09/05/18 23:34 Dose: 100 mls/hr Indomethacin (Indocin -) 50 mg PO TID [facility] Last Admin: 09/05/18 21:29 Dose: 50 mg Meperidine HCl (Demerol Vial) 50 mg IM Q6H PRN PRN Reason: PAIN 7-10 Last Admin: 09/04/18 23:35 Dose: 50 mg Promethazine HCl (Phenergan Injection -) 12.5 mg IVPB Q6H PRN PRN Reason: NAUSEA - Objective Vital Signs: Vital Signs Temperature 97.6 F 09/06/18 02:00 Pulse Rate 64 09/06/18 02:00 Respiratory Rate 18 09/05/18 22:00 Blood Pressure 125/67 09/06/18 02:00 O2 Sat by Pulse Oximetry (%) 99 09/03/18 07:35 Constitutional: Yes: Well Nourished, No Distress, Calm Eyes: Yes: Conjunctiva Clear HENT: Yes: Atraumatic Neck: Yes: Supple Cardiovascular: Yes: Regular Rate and Rhythm Gastrointestinal: Yes: Normal Bowel Sounds, Soft Genitourinary: Yes: Other (gravid fibroid uterus) Extremities: Yes: WNL Neurological: Yes: Alert, Oriented Psychiatric: Yes: Alert, Oriented Labs: CBC, BMP 09/03/18 08:20 09/03/18 08:20 INR, PTT INR 1.05 (0.83-1.09) 09/03/18 11:11 Problem List - Problems (1) 20 weeks gestation of Code(s): Z3A.20 - 20 WEEKS GESTATION OF (2) Abdominal pain during in second trimester Code(s): O26.892 - OTH RELATED CONDITIONS, SECOND TRIMESTER; R10.9 - UNSPECIFIED ABDOMINAL PAIN (3) Uterine fibroid Code(s): D25.9 - LEIOMYOMA OF UTERUS, UNSPECIFIED Qualifiers: Uterine leiomyoma location: subserous Qualified Code(s): D25.2 - Subserosal leiomyoma of uterus Assessment/Plan Continue with Indomethacin for pain due to fibroids pt desires to go home after the afternoon dose of medication if pain controlled ok to d/c home with close follow up in office
[2018-09-06] MEDS: INDOMETHACIN 50 MG CAPSULE PO SCH (06:03)
--- NOTE | 2018-09-06 06:09 | DS ---
Physical Examination Vital Signs: Vital Signs Temperature 97.6 F 09/06/18 02:00 Pulse Rate 64 09/06/18 02:00 Respiratory Rate 18 09/05/18 22:00 Blood Pressure 125/67 09/06/18 02:00 O2 Sat by Pulse Oximetry (%) 99 09/03/18 07:35 Constitutional: Yes: Well Nourished, No Distress Eyes: Yes: Conjunctiva Clear HENT: Yes: Atraumatic Neck: Yes: Supple Cardiovascular: Yes: Regular Rate and Rhythm Respiratory: Yes: CTA Bilaterally Gastrointestinal: Yes: Normal Bowel Sounds, Soft, Other (gravid fibroid uterus) Extremities: Yes: WNL Neurological: Yes: Alert, Oriented Psychiatric: Yes: Alert, Oriented Labs: CBC, BMP 09/03/18 08:20 09/03/18 08:20 Discharge Summary Reason For Visit: ABDOMINAL PAIN DURING INTRAUTERINE Current Active Problems 20 weeks gestation of (Acute) Abdominal pain during in second trimester (Acute) Nausea alone (Acute) Pedunculated leiomyoma of uterus (Acute) RLQ abdominal pain (Acute) Uterine fibroid (Acute) Hospital Course: Pt admitted on 09/03 for RLQ pain. Appendicitis ruled out. Pt 20 weeks gestation with large fibroids on uterus. Pt admitted for observation and pain management, started on indomethacin for fibroids. on Hospital day 3 pain was controlled/improved and pt was discharged home with instructions to f/u with OB/ ASSOCIATE PROFESSOR OF LAW within 1 week. Condition: Stable - Instructions Diet, Activity, Other Instructions: Dr Sorensen and Dr Ling IMPORTANT: Please follow ALL basic instructions AND any other instructions that have been marked with an X: Hydration and Elimination: _X_ Drink at least eight 8-ounce glasses of water a day _X_ Empty bladder frequently. Be sure to go to the bathroom when you first feel the urge. Don't wait! Movement Counts: _X_ Count your baby's kicks once a day Instructions: After mealtime, lay down in a quiet room (e.g., TV and radio off) . Over two (2) hours, count the number of times your baby moves. Once you have counted 10 movements, you are donel If you did not count 10 movements in two (2) hours, call your pile driver operator barge mounted. Notify your doctor for any of the following signs/symptoms: _X_ Less than 10 movements over two (2) hours _X_ Constant firm uterus (contraction that doesn't go away) _X_ Water gushing or leaking from the vagina; report amount, color, and odor to MD _X_ Increased vaginal discharge and/or odorous discharge _X_ Vaginal bleeding: spotting, flow, or clots _X_ Unrelieved indigestion, nausea, or vomiting _X_ Diarrhea (frequent loose/runny stools) _X_ Unrelieved headache _X_ Vision changes: blurriness, spots, flashes of light _X_ Mental confusion, or seizure _X_ Shortness of breath or difficulty breathing [ X ] Low back pain or lower abdominal pain that is worsening Referrals: Clarice Sorensen MD [Staff Physician] - 1 Week Disposition: HOME - Home Medications Comprehensive Discharge Medication List: Ambulatory Orders NK [No Known Home Medication] 08/19/18
[2018-09-06 10:01] VITALS: BP 106/56; PULSE 79; TEMP 98.8
== END 2018-09-06 12:15 | disposition home or self-care (01) | DRG 833 ==
LOC: JER 22:05 → JERBED 09-03 01:58 → OBSVTOIN 09-03 05:08 → J3W 09-03 13:49
PROVIDERS: ADMIT Internal Medicine; ATTEND Obstetrics & Gynecology
DX: O34.12 Maternal care for benign tumor of corpus uteri, second trimester (principal); D25.2 Subserosal leiomyoma of uterus; O26.892 Other specified pregnancy related conditions, second trimester; R10.31 Right lower quadrant pain; R11.0 Nausea; Z3A.20 20 weeks gestation of pregnancy
CPT/HCPCS: 36415; 74181-TC; 76705-TC; 76801-TC; 76856-TC; 80048; 80053; 80076; 81003; 83690; 83735; 84100; 84702; 85025; 85027; 85610; 86850; 86900; 86901; 87086; 87491; 87591; 93005; 93010; 99283-25; G0378; J0131; J2175